=== PATIENT | female | born 1960 | race African-American/Black ===

== ENCOUNTER 2022-12-13 16:15 | Emergency (ER) | payer OTHER, BC, SELFPAY ==
--- NOTE | ~2022-12-13 | CT_ITS ---
EXAMINATION: CT ABDOMEN AND PELVIS WITH CONTRAST CLINICAL INFORMATION: Right-sided abdominal pain COMPARISON: None TECHNIQUE: Multidetector volumetric images were obtained from the superior aspect of the liver through the pubic symphysis following administration 85 mL of Omnipaque 350 intravenous contrast. Sagittal and coronal reformatted images were obtained on the technologist's workstation. Oral contrast: No This CT examination was performed using dose optimization techniques as appropriate, variously including the following: *Automated exposure control *Adjustment of mA and/or kV according to patient size (this includes techniques or standardized protocols for targeted exams where dose is matched to indication/reason for exam; i.e. extremities or head) *Use of iterative reconstruction technique DLP: 491 mGy-cm FINDINGS: LUNG BASES: Minimal bibasilar atelectasis. LIVER, GALLBLADDER, AND BILIARY TREE: The liver is normal in size, shape, and attenuation. No focal hepatic lesion or biliary ductal dilatation is present. The gallbladder is unremarkable with no evidence of radiopaque gallstones, gallbladder wall thickening, or obvious pericholecystic inflammatory changes. PANCREAS: Unremarkable. SPLEEN: Unremarkable. ADRENAL GLANDS: Unremarkable. KIDNEYS AND URETERS: The kidneys are normal in size, shape, and attenuation. No hydronephrosis, hydroureter, or calculi seen. No perinephric stranding. BLADDER: Thick-walled appearance felt secondary to lack of distention. Bladder is grossly unremarkable. GASTROINTESTINAL TRACT: Sigmoid diverticulosis. No evidence of acute diverticulitis. Somewhat redundant transverse colon which loops into the pelvis noted incidentally. No dilated bowel loops. No bowel wall thickening. Normal appendix. No free air or ascites. ABDOMINAL WALL: Small fat-containing umbilical hernia. LYMPH NODES: No lymphadenopathy. VASCULAR: Unremarkable. PELVIC VISCERA: The uterus and adnexa are unremarkable. Small 1 cm hypoattenuating probable intramural fibroma anteriorly at the fundus on sagittal image 63. Uterus and adnexa otherwise unremarkable. OSSEOUS STRUCTURES: No acute fracture or suspicious osseous lesion. Mild multilevel spondylosis. Lower lumbar facet arthrosis. Mild grade 1 anterolisthesis at L4-L5. CT/CT abdomen pelvis w IV con IMPRESSION: 1. No evidence of acute appendicitis or other acute intra-abdominal process. 2. Sigmoid diverticulosis. No evidence of acute diverticulitis.
[2022-12-13 16:20] VITALS: BP 170/94; PULSE 103; RESP 20; TEMP 37.1; O2SAT 98; BMI 26.9
--- NOTE | 2022-12-13 16:21 | ED.GENADULT ---
HPI - General Adult General Chief complaint: Abdominal Pain <TASHA Flores - Last Filed: 12/13/22 16:22> Stated complaint: stomach cramps <TASHA Flores - Last Filed: 12/13/22 16:22> Time Seen by Provider: 12/13/22 17:53 <TASHA Flores - Last Filed: 12/13/22 16:22> Source: patient <Jimmie Mcbride MD - Last Filed: 12/13/22 23:22> Mode of arrival: ambulatory <Jimmie Mcbride MD - Last Filed: 12/13/22 23:22> Limitations: no limitations <Jimmie Mcbride MD - Last Filed: 12/13/22 23:22> History of Present Illness HPI narrative: Pt presented to the Ed c/o lower abdominal pain X 2 Weeks,denies fefer ,chills,vomiting <Jimmie Mcbride MD - Last Filed: 12/13/22 23:22> Onset (ago): week(s) (2) <Jimmie Mcbride MD - Last Filed: 12/13/22 23:22> Location: abdomen <Jimmie Mcbride MD - Last Filed: 12/13/22 23:22> Radiation: non-radiation <Jimmie Mcbride MD - Last Filed: 12/13/22 23:22> Severity: moderate <Jimmie Mcbride MD - Last Filed: 12/13/22 23:22> Quality: burning <Jimmie Mcbride MD - Last Filed: 12/13/22 23:22> Pain Consistency: constant <Jimmie Mcbride MD - Last Filed: 12/13/22 23:22> Exacerbating factors: none <Jimmie Mcbride MD - Last Filed: 12/13/22 23:22> Associated symptoms: denies other symptoms <Jimmie Mcbride MD - Last Filed: 12/13/22 23:22> Related Data Allergies/adverse reactions: Allergies Allergy/AdvReac Type Severity Reaction Status Date / Time No Known Allergies Allergy Verified 12/13/22 16:22 <TASHA Flores - Last Filed: 12/13/22 16:22> Review of Systems Constitutional: Constitutional: Reports no additional constitutional complaints <Jimmie Mcbride MD - Last Filed: 12/13/22 23:22> Cardiovascular: Cardiovascular: Reports no additional cardiovascular complaints <Jimmie Mcbride MD - Last Filed: 12/13/22 23:22> Respiratory: Respiratory: Reports no additional respiratory complaints <Jimmie Mcbride MD - Last Filed: 12/13/22 23:22> Gastrointestinal: Gastrointestinal: Reports no additional gastrointestinal complaints <Jimmie Mcbride MD - Last Filed: 12/13/22 23:22> Musculoskeletal: Musculoskeletal: Reports no additional musculoskeletal complaints <Jimmie Mcbride MD - Last Filed: 12/13/22 23:22> Neurologic: Reports system reviewed and no additional complaints, except as documented <Jimmie Mcbride MD - Last Filed: 12/13/22 23:22> [facility] Past Medical History [facility] Narrative: gatsritis <Jimmie Mcbride MD - Last Filed: 12/13/22 23:22> Social History Social History: Social History Smoked in Last 30 Days: No Use of substances other than those prescribed or required for medical reasons: No Advance Directives: No Advance Directives Information Provided: No <TASHA Flores - Last Filed: 12/13/22 16:22> Physical Exam ED Vital Signs: Vital Signs - 24 hr 12/13/22 16:20 12/13/22 18:16 12/13/22 19:28 Temperature 98.8 F 97.9 F 98.0 F Pulse Rate 103 H 79 72 Respiratory Rate 20 16 16 Blood Pressure 170/94 H 126/77 119/71 Pulse Oximetry 98 98 98 Oxygen Delivery Method Room Air Room Air Room Air BMI result Body Mass Index 26.9 <TASHA Flores - Last Filed: 12/13/22 16:22> Vital Signs - 24 hr 12/13/22 16:20 12/13/22 18:16 12/13/22 19:28 Temperature 98.8 F 97.9 F 98.0 F Pulse Rate 103 H 79 72 Respiratory Rate 20 16 16 Blood Pressure 170/94 H 126/77 119/71 Pulse Oximetry 98 98 98 Oxygen Delivery Method Room Air Room Air Room Air BMI result Body Mass Index 26.9 <Jimmie Mcbride MD - Last Filed: 12/13/22 23:22> Const General: cooperative and comfortable <Jimmie Mcbride MD - Last Filed: 12/13/22 23:22> Nutritional Appearance: well nourished <Jimmie Mcbride MD - Last Filed: 12/13/22 23:22> Orientation/consciousness: patient oriented x3 <Jimmie Mcbride MD - Last Filed: 12/13/22 23:22> Limitations: no limitations <Jimmie Mcbride MD - Last Filed: 12/13/22 23:22> HENMT Head: Yes normal to inspection <Jimmie Mcbride MD - Last Filed: 12/13/22 23:22> Ears: hearing grossly normal bilaterally <Jimmie Mcbride MD - Last Filed: 12/13/22 23:22> General nose exam: Normal external nose present <Jimmie Mcbride MD - Last Filed: 12/13/22 23:22> Face and sinus: Yes normal facial exam <Jimmie Mcbride MD - Last Filed: 12/13/22 23:22> Mouth: Normal oral and palatal mucosa present <Jimmie Mcbride MD - Last Filed: 12/13/22 23:22> Throat: Yes posterior oropharynx normal <Jimmie Mcbride MD - Last Filed: 12/13/22 23:22> Neck Neck: Yes normal visual inspection and Yes full ROM <Jimmie Mcbride MD - Last Filed: 12/13/22 23:22> Thyroid: Thyroid normal <Jimmie Mcbride MD - Last Filed: 12/13/22 23:22> Chest Chest palpation & inspection: normal inspection of the chest <Jimmie Mcbride MD - Last Filed: 12/13/22 23:22> Cardio Rate: regular rate <iJmmie Mcbride MD - Last Filed: 12/13/22 23:22> Rhythm: regular rhythm <Jimmie Mcbride MD - Last Filed: 12/13/22 23:22> GI Inspection: Yes normal to inspection <Jimmie Mcbride MD - Last Filed: 12/13/22 23:22> Palpation (GI): Soft to palpation, not firm, nontender and no guarding <Jimmie Mcbride MD - Last Filed: 12/13/22 23:22> Auscultation: normal bowel sounds <Jimmie Mcbride MD - Last Filed: 12/13/22 23:22> Skin General skin exam: no rashes or lesions noted and elasticity normal <Jimmie Mcbride MD - Last Filed: 12/13/22 23:22> Neuro General: patient oriented x3 <Jimmie Mcbride MD - Last Filed: 12/13/22 23:22> Course Course Course Narrative: RME performed by Subha Mejia PA-C. Patient is a 62 year old female presenting to the emergency department for abdominal pain and nausea. Patient states that for the last few days she has had some nausea and abdominal pain. Patient states that she is scheduled for an endoscopy. Labs ordered. Patient placed back in the waiting room pending results and room availability. <TASHA Flores - Last Filed: 12/13/22 16:22> Reevaluation(s) Reevaluation #1: She remained hemodynamically stable afebrile in no toxic-appearing workup is essentially negative including a CT scan at this point I think the patient can be safely discharged home follow-up with primary care physician I spoke with her and the significant other take comfortable with the plan of care she [facility] the interim <Jimmie Mcbride MD - Last Filed: 12/13/22 23:22> Medications Administered Discontinued Medications Generic Name Dose Route Start Last Admin Trade Name Freq PRN Reason Stop Dose Admin Iohexol 100 ml 12/13/22 19:12 12/13/22 19:12 Iohexol 350 Mg/Ml 100 Ml Infus..Btl IV 12/13/22 19:13 85 ml ONCE ONE Administration <TASHA Flores - Last Filed: 12/13/22 16:22> Medications Administered Discontinued Medications Generic Name Dose Route Start Last Admin Trade Name Freq PRN Reason Stop Dose Admin Iohexol 100 ml 12/13/22 19:12 12/13/22 19:12 Iohexol 350 Mg/Ml 100 Ml Infus..Btl IV 12/13/22 19:13 85 ml ONCE ONE Administration <Jimmie Mcbride MD - Last Filed: 12/13/22 23:22> Medical Decision Making Medical Decision Making [facility] Narrative: Patient presented to emergency department with chief complaint of abdominal pain x2 weeks she has normal labs she looks well she is not toxic-appearing abdomen is soft nontender. <Jimmie Mcbride MD - Last Filed: 12/13/22 23:22> Differential Diagnosis Differential Diagnoses: The differential diagnosis associated with the presentation includes <Jimmie Mcbride MD - Last Filed: 12/13/22 23:22> dicerticulitis /colitis/sbo <Jimmie Mcbride MD - Last Filed: 12/13/22 23:22> Admission/Observation Consideration of admission/observation: Escalation of care including admission/observation considered <Jimmie Mcbride MD - Last Filed: 12/13/22 23:22> Lab Data [facility] Lab Attestation statement: I reviewed the patient's lab results. <Jimmie Mcbride MD - Last Filed: 12/13/22 23:22> Result Diagrams: 12/13/22 17:16 12/13/22 17:16 <TASHA Flores - Last Filed: 12/13/22 16:22> Labs: Lab Results 12/13/22 12/13/22 12/13/22 Range/Units 17:16 17:16 17:16 WBC 5.7 (4.8-10.8) X10*3/uL RBC 5.49 (4.20-5.50) X10*6/uL Hgb 15.3 (12.0-16.0) g/dl Hct 47.8 H (37.0-47.0) % MCV 87.1 (80.0-98.0) fL MCH 27.9 (27.0-33.0) pg MCHC 32.0 (31.0-35.0) g/dl RDW 12.7 (11.0-16.0) % Plt Count 153 L (160-400) X10*3/uL MPV 12.0 (9.4-12.3) fL Immature Gran % (Auto) 0.7 H (0.0-0.4) % Neut % (Auto) 50.8 (45-73) % Lymph % (Auto) 38.3 (20-40) % Dare % (Auto) 8.8 (2-11) % Eos % (Auto) 0.9 (0-4) % Baso % (Auto) 0.5 (0-2) % Lymph # (Auto) 2.2 (1.2-4.9) X10*3/uL Dare # (Auto) 0.5 (0.1-1.2) X10*3/uL Eos # (Auto) 0.1 (0.0-0.4) X10*3/uL Baso # (Auto) 0.0 (0.0-0.2) X10*3/uL Abs Immat Gran (auto) 0.04 H (0.00-0.03) X10*3/uL Absolute Neuts (auto) 2.9 (2.0-8.3) x10*3/uL Absolute Nucleated RBC 0.000 (0.0-0.012) X10*3/uL Nucleated RBC % (auto) 0.0 (0.0-0.2) /100WBC Sodium 140 (135-145) mmol/L Potassium 4.5 (3.3-5.1) mmol/L Chloride 107 (96-108) mmol/L Carbon Dioxide 22 (22-29) mmol/L Anion Gap 16 (12-20) BUN 14 (9-16) mg/dL Creatinine 1.15 (0.5-1.4) mg/dL Estim Creat Clear Calc 53.4 Estimated GFR 48 Random Glucose 109 (60-115) mg/dL Calcium 9.8 (8.4-10.2) mg/dL Magnesium 2.2 (1.6-2.6) mg/dL Total Bilirubin 0.4 (0.0-1.0) mg/dL AST 24 (5-31) U/L ALT 21 (0-31) U/L Alkaline Phosphatase 101 (39-117) U/L Total Protein 7.5 (6.5-8.0) g/dL Albumin 4.3 (3.5-5.0) g/dL Lipase 12 (8-78) U/L Urine Color Urine Appearance Urine pH (5.0-9.0) Ur Specific [place] (1.005-1.025) Urine Protein (Neg-Trace) mg/dL Urine Glucose (UA) (Negative) mg/dL Urine Ketones (Negative) mg/dL Urine Blood (Negative) Urine Nitrite (Negative) Ur Leukocyte Esterase (Negative) Urine RBC (0-2) /HPF Urine WBC (0-5) /HPF Ur Squamous Epith Cells (0-2) /HPF Urine Bacteria (None Seen) Hyaline Casts (0-2) /LPF Influenza Type A (PCR) NEGATIVE (Negative) Influenza Type B (PCR) NEGATIVE (Negative) RSV RNA Qual (PCR) NEGATIVE (Negative) SARS-CoV-2 RNA (RT-PCR) NEGATIVE (Negative) 12/13/22 Range/Units 19:28 WBC (4.8-10.8) X10*3/uL RBC (4.20-5.50) X10*6/uL Hgb (12.0-16.0) g/dl Hct (37.0-47.0) % MCV (80.0-98.0) fL MCH (27.0-33.0) pg MCHC (31.0-35.0) g/dl RDW (11.0-16.0) % Plt Count (160-400) X10*3/uL MPV (9.4-12.3) fL Immature Gran % (Auto) (0.0-0.4) % Neut % (Auto) (45-73) % Lymph % (Auto) (20-40) % Dare % (Auto) (2-11) % Eos % (Auto) (0-4) % Baso % (Auto) (0-2) % Lymph # (Auto) (1.2-4.9) X10*3/uL Dare # (Auto) (0.1-1.2) X10*3/uL Eos # (Auto) (0.0-0.4) X10*3/uL Baso # (Auto) (0.0-0.2) X10*3/uL Abs Immat Gran (auto) (0.00-0.03) X10*3/uL Absolute Neuts (auto) (2.0-8.3) x10*3/uL Absolute Nucleated RBC (0.0-0.012) X10*3/uL Nucleated RBC % (auto) (0.0-0.2) /100WBC Sodium (135-145) mmol/L Potassium (3.3-5.1) mmol/L Chloride (96-108) mmol/L Carbon Dioxide (22-29) mmol/L Anion Gap (12-20) BUN (9-16) mg/dL Creatinine (0.5-1.4) mg/dL Estim Creat Clear Calc Estimated GFR Random Glucose (60-115) mg/dL Calcium (8.4-10.2) mg/dL Magnesium (1.6-2.6) mg/dL Total Bilirubin (0.0-1.0) mg/dL AST (5-31) U/L ALT (0-31) U/L Alkaline Phosphatase (39-117) U/L Total Protein (6.5-8.0) g/dL Albumin (3.5-5.0) g/dL Lipase (8-78) U/L Urine Color Yellow Urine Appearance Clear Urine pH 5.5 (5.0-9.0) Ur Specific [place] 1.025 (1.005-1.025) Urine Protein Trace (Neg-Trace) mg/dL Urine Glucose (UA) Negative (Negative) mg/dL Urine Ketones 15 (Negative) mg/dL Urine Blood Negative (Negative) Urine Nitrite Negative (Negative) Ur Leukocyte Esterase Moderate (2+) H (Negative) Urine RBC 3-5 H (0-2) /HPF Urine WBC 11-20 H (0-5) /HPF Ur Squamous Epith Cells 0-2 (0-2) /HPF Urine Bacteria None Seen (None Seen) Hyaline Casts 0-2 (0-2) /LPF Influenza Type A (PCR) (Negative) Influenza Type B (PCR) (Negative) RSV RNA Qual (PCR) (Negative) SARS-CoV-2 RNA (RT-PCR) (Negative) <TASHA Flores - Last Filed: 12/13/22 16:22> Lab Results 12/13/22 12/13/22 12/13/22 Range/Units 17:16 17:16 17:16 WBC 5.7 (4.8-10.8) X10*3/uL RBC 5.49 (4.20-5.50) X10*6/uL Hgb 15.3 (12.0-16.0) g/dl Hct 47.8 H (37.0-47.0) % MCV 87.1 (80.0-98.0) fL MCH 27.9 (27.0-33.0) pg MCHC 32.0 (31.0-35.0) g/dl RDW 12.7 (11.0-16.0) % Plt Count 153 L (160-400) X10*3/uL MPV 12.0 (9.4-12.3) fL Immature Gran % (Auto) 0.7 H (0.0-0.4) % Neut % (Auto) 50.8 (45-73) % Lymph % (Auto) 38.3 (20-40) % Dare % (Auto) 8.8 (2-11) % Eos % (Auto) 0.9 (0-4) % Baso % (Auto) 0.5 (0-2) % Lymph # (Auto) 2.2 (1.2-4.9) X10*3/uL Dare # (Auto) 0.5 (0.1-1.2) X10*3/uL Eos # (Auto) 0.1 (0.0-0.4) X10*3/uL Baso # (Auto) 0.0 (0.0-0.2) X10*3/uL Abs Immat Gran (auto) 0.04 H (0.00-0.03) X10*3/uL Absolute Neuts (auto) 2.9 (2.0-8.3) x10*3/uL Absolute Nucleated RBC 0.000 (0.0-0.012) X10*3/uL Nucleated RBC % (auto) 0.0 (0.0-0.2) /100WBC Sodium 140 (135-145) mmol/L Potassium 4.5 (3.3-5.1) mmol/L Chloride 107 (96-108) mmol/L Carbon Dioxide 22 (22-29) mmol/L Anion Gap 16 (12-20) BUN 14 (9-16) mg/dL Creatinine 1.15 (0.5-1.4) mg/dL Estim Creat Clear Calc 53.4 Estimated GFR 48 Random Glucose 109 (60-115) mg/dL Calcium 9.8 (8.4-10.2) mg/dL Magnesium 2.2 (1.6-2.6) mg/dL Total Bilirubin 0.4 (0.0-1.0) mg/dL AST 24 (5-31) U/L ALT 21 (0-31) U/L Alkaline Phosphatase 101 (39-117) U/L Total Protein 7.5 (6.5-8.0) g/dL Albumin 4.3 (3.5-5.0) g/dL Lipase 12 (8-78) U/L Urine Color Urine Appearance Urine pH (5.0-9.0) Ur Specific [place] (1.005-1.025) Urine Protein (Neg-Trace) mg/dL Urine Glucose (UA) (Negative) mg/dL Urine Ketones (Negative) mg/dL Urine Blood (Negative) Urine Nitrite (Negative) Ur Leukocyte Esterase (Negative) Urine RBC (0-2) /HPF Urine WBC (0-5) /HPF Ur Squamous Epith Cells (0-2) /HPF Urine Bacteria (None Seen) Hyaline Casts (0-2) /LPF Influenza Type A (PCR) NEGATIVE (Negative) Influenza Type B (PCR) NEGATIVE (Negative) RSV RNA Qual (PCR) NEGATIVE (Negative) SARS-CoV-2 RNA (RT-PCR) NEGATIVE (Negative) 12/13/22 Range/Units 19:28 WBC (4.8-10.8) X10*3/uL RBC (4.20-5.50) X10*6/uL Hgb (12.0-16.0) g/dl Hct (37.0-47.0) % MCV (80.0-98.0) fL MCH (27.0-33.0) pg MCHC (31.0-35.0) g/dl RDW (11.0-16.0) % Plt Count (160-400) X10*3/uL MPV (9.4-12.3) fL Immature Gran % (Auto) (0.0-0.4) % Neut % (Auto) (45-73) % Lymph % (Auto) (20-40) % Dare % (Auto) (2-11) % Eos % (Auto) (0-4) % Baso % (Auto) (0-2) % Lymph # (Auto) (1.2-4.9) X10*3/uL Dare # (Auto) (0.1-1.2) X10*3/uL Eos # (Auto) (0.0-0.4) X10*3/uL Baso # (Auto) (0.0-0.2) X10*3/uL Abs Immat Gran (auto) (0.00-0.03) X10*3/uL Absolute Neuts (auto) (2.0-8.3) x10*3/uL Absolute Nucleated RBC (0.0-0.012) X10*3/uL Nucleated RBC % (auto) (0.0-0.2) /100WBC Sodium (135-145) mmol/L Potassium (3.3-5.1) mmol/L Chloride (96-108) mmol/L Carbon Dioxide (22-29) mmol/L Anion Gap (12-20) BUN (9-16) mg/dL Creatinine (0.5-1.4) mg/dL Estim Creat Clear Calc Estimated GFR Random Glucose (60-115) mg/dL Calcium (8.4-10.2) mg/dL Magnesium (1.6-2.6) mg/dL Total Bilirubin (0.0-1.0) mg/dL AST (5-31) U/L ALT (0-31) U/L Alkaline Phosphatase (39-117) U/L Total Protein (6.5-8.0) g/dL Albumin (3.5-5.0) g/dL Lipase (8-78) U/L Urine Color Yellow Urine Appearance Clear Urine pH 5.5 (5.0-9.0) Ur Specific [place] 1.025 (1.005-1.025) Urine Protein Trace (Neg-Trace) mg/dL Urine Glucose (UA) Negative (Negative) mg/dL Urine Ketones 15 (Negative) mg/dL Urine Blood Negative (Negative) Urine Nitrite Negative (Negative) Ur Leukocyte Esterase Moderate (2+) H (Negative) Urine RBC 3-5 H (0-2) /HPF Urine WBC 11-20 H (0-5) /HPF Ur Squamous Epith Cells 0-2 (0-2) /HPF Urine Bacteria None Seen (None Seen) Hyaline Casts 0-2 (0-2) /LPF Influenza Type A (PCR) (Negative) Influenza Type B (PCR) (Negative) RSV RNA Qual (PCR) (Negative) SARS-CoV-2 RNA (RT-PCR) (Negative) <Jimmie Mcbride MD - Last Filed: 12/13/22 23:22> Independent Interpretation I performed an independent interpretation of an: CT Scan <Jimmie Mcbride MD - Last Filed: 12/13/22 23:22> Interpretation: BLADDER: Thick-walled appearance felt secondary to lack of distention. Bladder is grossly unremarkable.? GASTROINTESTINAL TRACT: Sigmoid diverticulosis. No evidence of acute diverticulitis. Somewhat redundant transverse colon which loops into the pelvis noted incidentally. No dilated bowel loops. No bowel wall thickening. Normal appendix. No free air or ascites.? ABDOMINAL WALL: Small fat-containing umbilical hernia.? LYMPH NODES: No lymphadenopathy. VASCULAR: Unremarkable. PELVIC VISCERA: The uterus and adnexa are unremarkable. Small 1 cm hypoattenuating probable intramural fibroma anteriorly at the fundus on sagittal image 63. Uterus and adnexa otherwise unremarkable.? OSSEOUS STRUCTURES: No acute fracture or suspicious osseous lesion. Mild multilevel spondylosis. Lower lumbar facet arthrosis. Mild grade 1 anterolisthesis at L4-L5.? CT/CT abdomen pelvis w IV con IMPRESSION: 1.? No evidence of acute appendicitis or other acute intra-abdominal process. 2.? Sigmoid diverticulosis. No evidence of acute diverticulitis. ? ? <Jimmie Mcbride MD - Last Filed: 12/13/22 23:22> Discharge Plan Discharge Clinical Impression: Abdominal pain <TASHA Flores - Last Filed: 12/13/22 16:22> Patient Disposition: Home, Self-Care <TASHA Flores - Last Filed: 12/13/22 16:22> Instructions: Abdominal Pain (ED) <TASHA Flores - Last Filed: 12/13/22 16:22> Additional Instructions: Follow-up with you primary care physician you CT scan was normal labs are normal return if you worse <TASHA Flores - Last Filed: 12/13/22 16:22> Referrals: Physician,Unknown J [Primary Care Provider] - 2 days <TASHA Flores - Last Filed: 12/13/22 16:22> Interventions: ED Discharge Assessment Last Done: 12/13/22 20:27 <TASHA Flores Last Filed: 12/13/22 16:22> Discharge Date/Time: 12/13/22 20:30 <TASHA Flores - Last Filed: 12/13/22 16:22>
[2022-12-13 17:32] LABS: MANUAL DIFF FLAG NO
[2022-12-13 17:35] LABS: Basophils Percent Auto 0.5 % (0-2); Eosinophils Absolute Auto 0.1 X10*3/uL (0.0-0.4); Eosinophils Percent Auto 0.9 % (0-4); Hematocrit 47.8 % (37.0-47.0); Hemoglobin 15.3 g/dl (12.0-16.0); Imm Gran Abs Auto 0.04 X10*3/uL (0.00-0.03); Imm Gran Pct Auto 0.7 % (0.0-0.4); Lymphocytes Absolute Auto 2.2 X10*3/uL (1.2-4.9); Lymphocytes Percent Auto 38.3 % (20-40); Mean Corpuscular Hemoglobin 27.9 pg (27.0-33.0); Mean Corpuscular Volume 87.1 fL (80.0-98.0); Monocytes Absolute Auto 0.5 X10*3/uL (0.1-1.2); Monocytes Percent Auto 8.8 % (2-11); Neutrophils Absolute Auto 2.9 x10*3/uL (2.0-8.3); Neutrophils Percent Auto 50.8 % (45-73); Platelet Count 153 X10*3/uL (160-400); Red Blood Count 5.49 X10*6/uL (4.20-5.50); Red Cell Distribution Width 12.7 % (11.0-16.0); White Blood Count 5.7 X10*3/uL (4.8-10.8)
[2022-12-13 17:49] LABS: Alanine Aminotransferase 21 U/L (0-31); Albumin Level 4.3 g/dL (3.5-5.0); Alkaline Phosphatase 101 U/L (39-117); Anion Gap 16 (12-20); Aspartate Amino Transferase 24 U/L (5-31); Bilirubin Total 0.4 mg/dL (0.0-1.0); Blood Urea Nitrogen 14 mg/dL (9-16); Calcium 9.8 mg/dL (8.4-10.2); Carbon Dioxide 22 mmol/L (22-29); Chloride 107 mmol/L (96-108); Creatinine Clr Calc Pharmacy 53.4; Estimated Glomerular Filt Rate 48; Glucose Random 109 mg/dL (60-115); Lipase 12 U/L (8-78); Magnesium 2.2 mg/dL (1.6-2.6); Potassium 4.5 mmol/L (3.3-5.1); Sodium 140 mmol/L (135-145); Total Protein 7.5 g/dL (6.5-8.0)
[2022-12-13 18:12] LABS: Influenza A PCR NEGATIVE (Negative); Influenza B PCR NEGATIVE (Negative); Resp Syncy Virus RNA Qual PCR NEGATIVE (Negative); SARS COV2 PCR INHOUSE NEGATIVE (Negative)
[2022-12-13 18:16] VITALS: BP 126/77; PULSE 79; RESP 16; TEMP 36.6; O2SAT 98
--- NOTE | 2022-12-13 18:33 | PC.NURSE ---
# 20 iv PLACED IN RIGHT WRIST WITHOUT ANY COMPLICATIONS
--- NOTE | 2022-12-13 19:02 | PC.NURSE ---
This telegraphic typewriter repairer assumed care of this PT at 1900. PT reports tolerable pain 3/10 to RLQ. Reports last BM was prior to arrival, denies N/V. + Bowel sounds x4. PT ambulating to BR independently.
[2022-12-13] MEDS: iohexoL 350 MG/ML 100 ML INFUS..BTL IV (19:12)
[2022-12-13 19:28] VITALS: BP 119/71; PULSE 72; RESP 16; TEMP 36.7; O2SAT 98
--- NOTE | 2022-12-13 19:29 | MHC.EDTECH ---
this pct assumed care of patient at 1900 ,patient vitals sign taken and urine sample send to lab ,patient at bedside ,call jackson within reach .
[2022-12-13 19:36] LABS: Appearance Urine Clear; Color Urine Yellow; Glucose Urine UA Negative (Negative); Leukocyte Esterase Urine Moderate (2+) (Negative); Nitrite Urine Negative (Negative); PH 5.5 (5.0-9.0); Specific Gravity - Urine 1.025 (1.005-1.025); UMIC TRIGGER UACC YES; Urine Blood Negative (Negative); Urine Ketones 15 mg/dL (Negative); Urine Protein Trace mg/dL (Neg-Trace)
[2022-12-13 19:41] LABS: Bacteria Urine None Seen (None Seen); Hyaline Casts Urine 0-2 /LPF (0-2); Squamous Epithelial Cell Urine 0-2 /HPF (0-2); UACC Culture Trigger YES
== END 2022-12-13 20:30 | disposition home or self-care (01) ==
PROVIDERS: Physician Assistant Medical; Emergency Provider Emergency Medicine
DX: R10.30 Lower abdominal pain, unspecified (principal); R11.0 Nausea; Z20.822 Contact with and (suspected) exposure to COVID-19; Z20.828 Contact with and (suspected) exposure to other viral communicable diseases
CPT/HCPCS: 0241U; 74177; 80053; 81001; 83690; 83735; 85025; 87086; 99284; Q9967